=== PATIENT | female | born 1955 | race Caucasian/White ===

== ENCOUNTER 2020-09-30 10:33 | Day surgery (SDC) | payer MEDICARE, MEDICAID ==
[~2020-09-30] VITALS: Ht 157.5 cm; Wt 123.5 kg
[2020-09-30] MEDS ORDERED: CHOL10003 PO (11:20)
[2020-09-30] MEDS ORDERED: METO50TA82 PO (11:20)
[2020-09-30] MEDS ORDERED: LEVO175T5 PO (11:20)
[2020-09-30] MEDS ORDERED: LINA145C PO (11:20)
[2020-09-30] MEDS ORDERED: GABA600T7 PO (11:20)
[2020-09-30] MEDS ORDERED: METF500T17 PO (11:20)
[2020-09-30] MEDS ORDERED: OMEP-110 PO (11:20)
[2020-09-30] MEDS ORDERED: RIVA20TA PO (11:20)
[2020-09-30] MEDS ORDERED: DULO30CA2 PO (11:20)
[2020-09-30] MEDS ORDERED: CHLORHEXIDINE 15 ML UDC ONE (11:24)
[2020-09-30] MEDS ORDERED: CHLORHEXIDINE 15 ML UDC PO ONE (11:30)
[2020-09-30] MEDS ORDERED: LACTATED RINGERS 1,000 ML IV SCH (11:30)
[2020-09-30 11:36] VITALS: BP 143/79
[2020-09-30 11:40] LABS: ALANINE AMINOTRANSFERASE 27 U/L (12-78); ALBUMIN 3.6 g/dL (3.4-5.0); ANION GAP 6 mmol/L (5-15); CALCIUM 9.7 mg/dL (8.5-10.1); CHLORIDE 108 mmol/L (98-107); CREATININE 0.72 mg/dL (0.55-1.02)
[2020-09-30 11:42] LABS: ALKALINE PHOSPHATASE 78 U/L (45-117); BILIRUBIN,TOTAL 0.5 mg/dL (0.2-1.0); TOTAL PROTEIN 7.6 g/dL (6.4-8.2)
[2020-09-30] MEDS ORDERED: PROPOFOL 10 MG/ML, 20ML ONE (12:03)
[2020-09-30] MEDS ORDERED: DEXAMETHASONE 4 MG/ML, 5ML ONE (12:03)
[2020-09-30] MEDS ORDERED: MIDAZOLAM 1 MG/ML, 2ML ONE (12:03)
[2020-09-30] MEDS ORDERED: GLYCOPYRROLATE 0.2MG/1ML, 5ML ONE (12:03)
[2020-09-30] MEDS ORDERED: LIDOCAINE-MPF 2% ,5ML ONE (12:03)
[2020-09-30] MEDS ORDERED: MIDAZOLAM 1 MG/ML, 2ML IV PRN (13:00)
[2020-09-30] MEDS ORDERED: HALOPERIDOL 5 MG/ML IV PRN (13:00)
[2020-09-30] MEDS ORDERED: FENTANYL PF 100 MCG/2ML IV PRN (13:00)
[2020-09-30] MEDS ORDERED: OXYcodone 5 MG/5 ML ORAL.SOL UDC PO PRN (13:00)
[2020-09-30] MEDS ORDERED: LABETALOL 5MG/ML, 20ML IV PRN (13:00)
[2020-09-30] MEDS ORDERED: DIPHENHYDRAMINE 50 MG/ML, 1ML IM PRN (13:00)
[2020-09-30] MEDS ORDERED: ALBUTEROL/IPRATROPIUM 2.5MG/0.5MG, 3 ML NPPB PRN (13:00)
[2020-09-30] MEDS ORDERED: LORazepam 2 MG/ML, 1ML IVPush PRN (13:00)
[2020-09-30] MEDS ORDERED: hydrALAzine 20 MG/ML, 1ML IV PRN (13:00)
[2020-09-30] MEDS ORDERED: MEPERIDINE/PF 25MG/0.5ML IVPush PRN (13:00)
[2020-09-30] MEDS ORDERED: ONDANSETRON 2MG/ML, 2ML IVPush PRN (13:00)
[2020-09-30] MEDS ORDERED: DIAZEPAM 5 MG/ML, 2ML IVPush PRN (13:00)
[2020-09-30] MEDS ORDERED: METOCLOPRAMIDE 5 MG/ML, 2ML IVPush PRN (13:00)
[2020-09-30] MEDS ORDERED: HYDROcodone/APAP 7.5-325MG/15ML UDC PO PRN (13:00)
[2020-09-30] MEDS ORDERED: EPHEDRINE 50 MG/ML, 1ML IVPush PRN (13:00)
[2020-09-30] MEDS ORDERED: MEPERIDINE/PF 25MG/ML,1ML ONE (13:55)
[2020-09-30] MEDS ORDERED: OXYcodone 5 MG/5 ML ORAL.SOL UDC ONE (14:26)
[2020-09-30] MEDS ORDERED: ACETAMINOPHEN 650 MG/20.3 ML UDC ONE (14:27)
[2020-09-30] MEDS ORDERED: ACETAMINOPHEN 325 MG TABLET PO PRN (15:00)
== END 2020-09-30 15:35 | disposition home or self-care (01) ==
LOC: OUT 10:33
PROVIDERS: ATTEND Internal Medicine Geriatric Medicine
DX: Z12.11 Encounter for screening for malignant neoplasm of colon (principal); K21.9 Gastro-esophageal reflux disease without esophagitis; K57.30 Diverticulosis of large intestine without perforation or abscess without bleeding; I10 Essential (primary) hypertension; F41.9 Anxiety disorder, unspecified; I25.2 Old myocardial infarction; I48.91 Unspecified atrial fibrillation; G47.33 Obstructive sleep apnea (adult) (pediatric); E66.9 Obesity, unspecified; Z20.822 Contact with and (suspected) exposure to COVID-19; Z79.84 Long term (current) use of oral hypoglycemic drugs; Z79.890 Hormone replacement therapy; Z79.899 Other long term (current) drug therapy; Z86.010 Personal history of colon polyps; Z87.891 Personal history of nicotine dependence; Z88.0 Allergy status to penicillin; Z91.040 Latex allergy status; Z91.018 Allergy to other foods
CPT/HCPCS: 36415; 43235; 80053; 87635; 93005; G0105; J1100; J2175; J2250; J2704; J7120